=== PATIENT | male | born 1980 | race Hispanic/Latino ===

== ENCOUNTER 2019-11-21 13:24 | Inpatient (IN) | payer OTHER, SELFPAY ==
[2019-11-21] MEDS ORDERED: Morphine 4 MG/ML VIAL ONE (13:40)
[2019-11-21] MEDS ORDERED: Ondansetron PF 4 MG/2 ML Vial ONE (13:40)
[2019-11-21] MEDS ORDERED: Adacel (T-DAP) 0.5 ML SYRINGE ONE (13:40)
[2019-11-21 13:56] LABS: #Eosinphils 0.1 thou/uL (0.0-0.7); #Lymphocytes 1.6 thou/uL (1.20-3.40); #Monocytes 0.5 thou/uL (0.11-0.59); #Neutrophils 7.5 thou/uL (1.40-6.50); %Basophils 0.5 % (0.0-1.0); %Lymphocytes 16.6 % (21.0-51.0); %Neutrophils 76.9 % (42.0-75.0); Hemoglobin 16.4 g/dL (14.0-18.0); Mean Corpuscular HGB CONC 32.6 g/dL (32.0-36.0); Mean Corpuscular Volume 91.9 fL (78.0-98.0); Mean Platelet Volume 7.8 fL (7.4-10.4); Platelet Count 225 thou/uL (130-400); RBC Distribution Width 12.3 % (11.5-14.5); Red Blood Cell (RBC) Count 5.48 mill/uL (4.70-6.10); White Blood Cell (WBC) Count 9.8 thou/uL (4.8-10.8)
[2019-11-21] MEDS ORDERED: Crotalidae Polyvlnt Antivenin 6 GM in Sodium Chloride 0.9% 250 ML 250 ML IVPB SCH (14:00)
[2019-11-21 14:03] LABS: PTT 33.2 sec (22.9-36.1); Prothrombin Time 12.9 sec (12.0-14.7)
[2019-11-21 14:22] LABS: ALT (SGPT) 17 U/L (8-55); AST (SGOT) 25 U/L (5-34); Albumin 4.4 g/dL (3.5-5.0); Alkaline Phosphatase 48 U/L (40-110); Anion Gap 15 mmol/L (10-20); BUN (Urea Nitrogen) 9 mg/dL (8.9-20.6); Bilirubin, Total 0.3 mg/dL (0.2-1.2); Calc. Creatinine Clearance 0 mL/min (70-130); Calcium 9.3 mg/dL (7.8-10.44); Carbon Dioxide 22 mmol/L (22-29); Chloride 107 mmol/L (98-107); Estimated GFR-MDRD Greater than 90; Globulin 3.4 g/dL (2.4-3.5); Glucose 124 mg/dL (70-105); Protein, Total 7.8 g/dL (6.0-8.3); Sodium 140 mmol/L (136-145)
--- NOTE | 2019-11-21 14:29 | PDOC.FPRHP ---
- History of Present Illness Chief Complaint: Snake Bite (Copperhead) History of Present Illness: Bit at 1130 AM by a Copperhead. Patient killed snake and presented to hospital. He presented in [place], received pain medicine, and was transferred to [facility] 04/30 ability of CroFab. He was life flighted. On arrival here, patient was reportedly nauseous which had improved after Zofran. 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 He noticed significant swelling within 1 hr. He denied any other symptoms associated with bite. He endorses feeling and minimal ROM in hand limited by pain. ED Course: Over the course of his ER stays/transfers, he received pain control including 100 mcg fentanyl, 0.5 mg dilaudid, and 8 mg morphine. He still endorsed 6/10 pain. He was started on Crofab at [facility]. - Allergies/Adverse Reactions Allergies Allergy/AdvReac Type Severity Reaction Status Date / Time No Known Allergies Allergy Unverified 11/21/19 13:47 - History PMH: None Meds: None Allergies: NKDA Surgery: None FHx: None Social: drinks 18 pack of beer on the weekend, smokes 2-3 cigarettes/day, denies other drug use - Review of Systems General: denies: fever/chills, weight/appetite/sleep changes Eyes: denies: eye pain, vision changes ENT: denies: nasal congestion, rhinorrhea Respiratory: denies: cough, congestion, shortness of breath Cardiovascular: denies: chest pain, palpitation Gastrointestinal: reports: nausea. denies: vomiting, diarrhea Genitourinary: denies: incontinence, dysuria Skin: reports: rashes, lesions (erythema in arm, snake bite on hypothenar eminence) Musculoskeletal: reports: pain, tenderness, stiffness, swelling Neurological: denies: numbness, syncope, seizure, weakness Psychological: denies: anxiety - Vital signs T 97.8 P: 69 RR: 20 O2 sats: 95 BP 122/79 Wt: 79 kg - Physical Exam Constitutional: NAD, awake, alert and oriented, well developed HEENT: normocephalic and atraumatic, conjunctiva clear, grossly normal vision, normal nasal mucosa, MMM Neck: supple, FROM Heart: RRR, normal S1/S2, no murmurs/rubs/gallops Lungs: CTAB, no respiratory distress, good air movement Abdomen: soft, non-tender, bowel sounds present -Musculoskeletal: Significant edema of RUE extending from fingertips to just above elbow with erythema and pain Neurological: no focal deficit, normal sensation -Skin: 2 puncture woudns on R hypothenar eminence, large nevus with hair over thoracic spine Heme/Lymphatic: no unusual bruising or bleeding, no purpura Psychiatric: normal mood and affect, good judgment and insight, intact recent and remote memory FMR H&P: Results - Labs Result Diagrams: 11/21/19 13:45 11/21/19 13:45 Lab results: WBC 9.8 thou/uL (4.8-10.8) 11/21/19 13:45 Hgb 16.4 g/dL (14.0-18.0) 11/21/19 13:45 Hct 50.4 % (42.0-52.0) 11/21/19 13:45 MCV 91.9 fL (78.0-98.0) 11/21/19 13:45 Plt Count 225 thou/uL (130-400) 11/21/19 13:45 Neutrophils % 76.9 % (42.0-75.0) H 11/21/19 13:45 Sodium 140 mmol/L (136-145) 11/21/19 13:45 Potassium 4.0 mmol/L (3.5-5.1) 11/21/19 13:45 Chloride 107 mmol/L (98-107) 11/21/19 13:45 Carbon Dioxide 22 mmol/L (22-29) 11/21/19 13:45 BUN 9 mg/dL (8.9-20.6) 11/21/19 13:45 Creatinine 0.83 mg/dL (0.7-1.3) 11/21/19 13:45 Glucose 124 mg/dL (70-105) H 11/21/19 13:45 Calcium 9.3 mg/dL (7.8-10.44) 11/21/19 13:45 Total Bilirubin 0.3 mg/dL (0.2-1.2) 11/21/19 13:45 AST 25 U/L (5-34) 11/21/19 13:45 ALT 17 U/L (8-55) 11/21/19 13:45 Alkaline Phosphatase 48 U/L (40-110) 11/21/19 13:45 Serum Total Protein 7.8 g/dL (6.0-8.3) 11/21/19 13:45 Albumin 4.4 g/dL (3.5-5.0) 11/21/19 13:45 PT 12.9 INR 1.0 APTT 33.2 Fibrinogen 343 - EKG Interpretation EKG: no QT prolongation, Sinus Tach FMR H&P: A/P - Plan Copperhead Bite - Admit to tele monitor QT prolongation - Crofab per protocol loading dose in ER completed at 1530, f/u coags 1 hr post infusion, 2 vials Q 6h hrs X3 starting 6 hrs post loading dose. Repeat Coags 12- 18 hrs after last dose - monitor coagulation studies - Pain control with morphine - monitor vitals PCP: CC Code: Full Diet: Heart Healthy Activity: Ad celso VTE PPx: SCDs - Krystyna Score: 0 (Low Score) GI PPx: None Dispo: Confirmed treatment protocol with poison control. Patient stable at this time. Expected LOS < 48H FMR H&P: Upper Level - Pertinent history Patient is a 39 y/o male who presents to the ED via [facility] from [place], [place] following a snakebite. Patient states that he was working outside when he was bit on the right hand by a Copperhead, which he recognized on sight. Patient states that he killed the snake immediately following the bite but lost it en route to the hospital. Patient endorsed immediate 10/10 pain in his right hand and localized swelling and subsequently presented to the ED for evaluation. Per checkout, the ED in [place], [place] did not have CroFab, and the patient was subsequently transported via [facility] to [place], [place]. Patient denied chest pain, SOB, worsening VALENCIA, visual disturbances, or ancillary bites/injuries. - Pertinent findings ROS(+): Pain, nausea ROS(-): Fevers, chills, VALENCIA, visual disturbances, chest pain, SOB, vomiting, diarrhea, constipation, additional bites/injuries - Plan Date/Time: 11/21/19 8119 Patient is a 39 y/o male who presents to the ED via [facility] from an outside hospital following a snakebite. 1. Snakebite -s/p Copperhead bite at 1130 on 11/21/2019 -Based on bite samuel, offending snake was rather large -Patient's rapidly ascending edema is concerning - will plan for interval markings to assess for continue spread and augment CroFab regimen as needed -EKG: Sinus Tachycardia -Initial CBC, CMP and Coag Panel WNL -s/p CroFab 6u in the ED -Will plan for additional Coag Study 1H following initial CroFab administration -Will plan for CroFab 2g IV Q6H x3 following initial CroFab administration -Will plan for BMP 12-18H following final CroFab administration -Will control pain aggressively and augment as needed PCP: CC Code: Full Diet: Heart Healthy Activity: Ad celso VTE PPx: SCDs - Krystyna Score: 0 (Low Score) GI PPx: None Dispo: Patient is currently stable and admitted to the [facility] for ongoing treatment following a snakebite. Will continue treatments with CroFab followed by Coag Studies as per above and will plan for a BMP 12-18H last treatment - confirmed with Poison Control via telephone. Will monitor patient's pain and augment medication regimen as needed. Expected LOS > 48H I, Dr. Kwabena Cole, have evaluated this patient and agree with findings/plan as outlined by clinical nursing intern resident. Pertinent changes/additions are listed here.
[2019-11-21] MEDS ORDERED: Acetaminophen 325 MG TAB PO PRN ×2 (17:59→18:06)
[2019-11-21] MEDS ORDERED: Ondansetron PF 4 MG/2 ML Vial IVP PRN ×3 (17:59→20:09)
[2019-11-21] MEDS ORDERED: Ondansetron ODT 4 MG TAB SL PRN (17:59)
[2019-11-21] MEDS ORDERED: Morphine 4 MG/ML VIAL SLOW IVP PRN ×3 (18:00→20:08)
[2019-11-21] MEDS ORDERED: Calcium Carbonate 500 MG ChewTAB PO PRN (18:06)
[2019-11-21] MEDS ORDERED: Acetaminophen 650 MG Suppository PR PRN (18:06)
[2019-11-21] MEDS ORDERED: Ondansetron ODT 4 MG TAB PO PRN (18:06)
[2019-11-21 18:28] VITALS: BMI 27.3
[2019-11-21 19:15] LABS: PTT 28.1 sec (22.9-36.1); Prothrombin Time 13.4 sec (12.0-14.7)
[2019-11-21] MEDS ORDERED: diphenhydrAMINE 50 MG/ML VIAL IVP PRN (20:08)
[2019-11-21] MEDS ORDERED: Acetaminophen 500 MG TAB PO PRN (20:09)
[2019-11-21] MEDS ORDERED: HOLD ALL ANTI-COAGULANTS/ANTI-PLATELETS/NSAIDS PO SCH (20:15)
[2019-11-21] MEDS ORDERED: Famotidine/PF 20 mg/2ml Vial SLOW IVP SCH (21:00)
[2019-11-21] MEDS: Famotidine 20 MG TAB PO SCH (21:57)
[2019-11-21] MEDS: Crotalidae Polyvlnt Antivenin 2 GM in Sodium Chloride 0.9% 250 ML 250 ML IVPB SCH (21:57)
[2019-11-21] MEDS: Lactated Ringer's 1,000 ML IV SCH (23:51)
[2019-11-22] MEDS: Crotalidae Polyvlnt Antivenin 2 GM in Sodium Chloride 0.9% 250 ML 250 ML IVPB SCH ×2 (04:03→09:49)
[2019-11-22 04:21] LABS: #Eosinphils 0.3 thou/uL (0.0-0.7); #Lymphocytes 1.6 thou/uL (1.20-3.40); #Monocytes 0.5 thou/uL (0.11-0.59); #Neutrophils 4.1 thou/uL (1.40-6.50); %Basophils 0.6 % (0.0-1.0); %Eosinophils 4.5 % (0.0-10.0); %Lymphocytes 24.1 % (21.0-51.0); %Monocytes 7.1 % (0.0-10.0); %Neutrophils 63.7 % (42.0-75.0); Hemoglobin 15.6 g/dL (14.0-18.0); Mean Corpuscular HGB CONC 32.5 g/dL (32.0-36.0); Mean Corpuscular Hemoglobin 30.7 pg (27.0-31.0); Mean Corpuscular Volume 94.5 fL (78.0-98.0); Mean Platelet Volume 8.9 fL (7.4-10.4); Platelet Count 196 thou/uL (130-400); RBC Distribution Width 12.4 % (11.5-14.5); Red Blood Cell (RBC) Count 5.07 mill/uL (4.70-6.10); White Blood Cell (WBC) Count 6.5 thou/uL (4.8-10.8)
[2019-11-22 04:36] LABS: Anion Gap 12 mmol/L (10-20); BUN (Urea Nitrogen) 8 mg/dL (8.9-20.6); Calc. Creatinine Clearance 158 mL/min (70-130); Calcium 8.4 mg/dL (7.8-10.44); Carbon Dioxide 23 mmol/L (22-29); Chloride 107 mmol/L (98-107); Estimated GFR-MDRD Greater than 90; Glucose 90 mg/dL (70-105); Sodium 138 mmol/L (136-145)
--- NOTE | 2019-11-22 05:48 | PDOC.FM ---
- Subjective Subjective: Patient reports minimal pain with tightness from the swelling. Swelling has gone down since last night, now it is from fingertips to just below the elbow. He denies any other sx including SOB, chest pain, other aches/pains, or abnormal bleeding. - Objective MAR Reviewed: Yes Vital Signs & Weight: Vital Signs (12 hours) Temp Pulse Resp BP BP Pulse Ox 11/22/19 03:34 98.1 F 70 15 110/63 99 11/21/19 22:14 98.1 F 77 18 120/70 99 11/21/19 19:25 98.2 F 63 17 119/74 98 Weight Weight 79.379 kg Result Diagrams: 11/22/19 04:04 11/22/19 04:04 Phys Exam - Physical Examination Constitutional: NAD HEENT: moist MMs, sclera anicteric Neck: no nodes, no JVD Respiratory: no wheezing, no rales, no rhonchi, clear to auscultation bilateral Cardiovascular: RRR, no significant murmur Gastrointestinal: soft, non-tender, no distention, positive bowel sounds Musculoskeletal: pulses present RUE edema from fingertips to just below elbow Neurological: non-focal, moves all 4 limbs Psychiatric: normal affect, A&O x 3 Dx/Plan - Plan Plan: Copperhead Bite - tele monitor QT prolongation - Crofab per protocol, loading dose and 2/3 subsequent doses completed. Repeat Coags 1 hr after last dose, >6 hrs after last dose, and likely one more time before dc - monitor coagulation studies - Pain control with morphine - monitor vitals - BMP, CBC in AM PCP: CC Code: Full Diet: Heart Healthy Activity: Ad celso VTE PPx: SCDs - Krystyna Score: 0 (Low Score) GI PPx: None Dispo: Confirmed treatment protocol with poison control. Patient stable at this time. Expected LOS < 48H
[2019-11-22] MEDS: Lactated Ringer's 1,000 ML IV SCH ×2 (08:26→16:50)
[2019-11-22] MEDS: Famotidine 20 MG TAB PO SCH (08:28)
[2019-11-22 12:30] LABS: SARS-CoV-2 MS2 Positive; SARS-CoV-2 N Gene Negative; SARS-CoV-2 S Gene Negative; SARS-CoV-2 by NAA Not Detected (NotDetected); SARS-CoV-2 orf1ab Negative
[2019-11-22 16:19] VITALS: BP 115/70; TEMP 98.2
[2019-11-22 17:13] LABS: #Eosinphils 0.3 thou/uL (0.0-0.7); #Lymphocytes 1.3 thou/uL (1.20-3.40); #Monocytes 0.3 thou/uL (0.11-0.59); #Neutrophils 3.6 thou/uL (1.40-6.50); %Basophils 0.5 % (0.0-1.0); %Eosinophils 5.3 % (0.0-10.0); %Monocytes 5.4 % (0.0-10.0); %Neutrophils 65.8 % (42.0-75.0); Hemoglobin 14.2 g/dL (14.0-18.0); Mean Corpuscular HGB CONC 32.9 g/dL (32.0-36.0); Mean Corpuscular Hemoglobin 30.8 pg (27.0-31.0); Mean Corpuscular Volume 93.4 fL (78.0-98.0); Mean Platelet Volume 7.8 fL (7.4-10.4); Platelet Count 180 thou/uL (130-400); Red Blood Cell (RBC) Count 4.63 mill/uL (4.70-6.10); White Blood Cell (WBC) Count 5.5 thou/uL (4.8-10.8)
[2019-11-22 17:21] LABS: PTT 27.8 sec (22.9-36.1); Prothrombin Time 12.9 sec (12.0-14.7)
[2019-11-22] MEDS ORDERED: Tetrahydrozoline 0.05% OPTH 15 ML BOT EA EYE PRN (17:27)
--- NOTE | 2019-11-22 17:30 | HP ---
I have examined the patient. I have discussed the case with Dr. Bulmaro Luna and agree with his assessment and plan. 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 On the day of admission, he was doing some foundation work, reached out, and felt bites on his hand. He noted very large copperhead. He was taken to a local either ED or urgent care. They did not have CroFab, so the patient was transferred to [place] for a higher level of care. I examined him in the ER thereafter. PHYSICAL EXAMINATION: GENERAL: He is a robust, healthy-appearing man, in no distress. He does complain of some pain in his right arm near the site of the copperhead bite, which is on the hyperthenar eminence of his right hand. He has swelling progressing proximally to the mid biceps. As stated, he is awake, alert, and other than pain and swelling in his arm, he is in no acute distress. VITAL SIGNS: Temperature afebrile, respirations are 18 and not labored, pulse rate is 70 and regular, blood pressure 122/79, and O2 saturation 95% on room air. NECK: Supple. CARDIAC: Heart rhythm regular. No gallop or murmur noted. LUNGS: Clear without rales or wheezes. ABDOMEN: Flat and soft. NEUROLOGIC: No focal deficits. EXTREMITIES: With careful attention to his right arm and hand, his right arm has swollen in its entirety from the fingertips to the mid biceps. There are 2 puncture wounds, by approximately 1.5 to 2 cm on the hyperthenar eminence of his right hand, consistent with a snake bite. He has gross tense edema to the level of the mid biceps. Capillary refill is normal. He denies any muscle weakness or paresthesias or anesthesias. LABORATORY DATA: CBC: White count is 9800, hemoglobin is 16.4, and hematocrit 50.4 with an MCV of 92. Chemistry: Sodium 140, potassium 4, chloride 107, bicarb 22, BUN 9, and creatinine 0.83. Coags: His PT is 12.9, his INR is 1.0, his PTT is 33.2, and fibrinogen is 343. All of these are within normal range. ASSESSMENT: Copperhead snake bite. PLAN: Admit. He has already received the initial dose of CroFab. He will receive 3 more dosages every 6 hours. We will also continue to monitor his coagulable parameters, although at this point, he shows no evidence of a coagulopathy. He in fact shows no systemic symptoms, but does have a significant swelling of his right arm with no evidence for compartment syndrome. Job ID: [id number]
--- NOTE | 2019-11-22 17:31 | PRG ---
DATE OF SERVICE: 11/22/2019 Mr. Dave this morning is awake and alert. He states that his arm pain is greatly diminished. The swelling has subsided substantially and now extends to the level of the elbow. Again, he has no signs of a compartment syndrome and has normal capillary refill. He is due for one more dose of CroFab, after which time we can likely discharge him after checking one more coagulable panel. Job ID: [id number]
--- NOTE | 2019-11-22 23:02 | DIS ---
DATE OF ADMISSION: 11/21/2019 DATE OF DISCHARGE: 11/22/2019 ADMITTING ATTENDING: Be Urban MD DISCHARGE ATTENDING: Be Urban MD CONSULTATIONS: None. PROCEDURES: None. PRIMARY DIAGNOSIS: Copperhead snake bite. SECONDARY DIAGNOSIS: None. DISCHARGE MEDICATIONS: None. DISCONTINUED MEDICATIONS: None. HPI/HOSPITAL COURSE: The patient is a 39-year-old male who presented to our hospital due to a copperhead snake bite. The patient was transferred here from [place], where he initially presented. He was life flighted here. He received CroFab. The patient reports that on the morning of admission at around 11:30 a.m. he was working on [employer] as part of his job, reached his hand out and was bit. He was bit on the lateral portion of his right hand. He killed the snake and presented to the initial hospital. He reports that within 1 hour he had significant swelling. Within 2 hours the swelling extended up to his right elbow. He endorsed significant pain at that time with nausea upon arrival. He received Fentanyl, Dilaudid, and morphine for pain control. He received Zofran for nausea. Upon arrival, he was started on CroFab loading dose of 6 units. Poison Control was called to ensure the treatment was correct. After the initial loading dose, the patient received 2 units every 6 hours x3. The patient's coagulation studies were periodically checked and remained within normal limits. The patient also had repeat CBCs and basic metabolic panels that continued to be stable and within normal limits during his time in the hospital. On the morning of 11/21, the patient reports that his hand and arm have minimal pain. He required no pain medicine overnight. He reports the swelling has gone down and had more movement in his hand. He continued to have less swelling during the day and was eventually discharged with stable, normal labs after completing all appropriate doses of CroFab. DISPOSITION: Stable. DISCHARGE INSTRUCTIONS: 1. Location: Home. 2. Diet: No restrictions. 3. Activity: I told the patient to take rest of the week off work and to take it easy with his right hand. I told him to return to work when his hand and arm had significantly decreased swelling. 4. Followup: Explained to the patient the importance of followup with a PCP. The patient reports that he has no PCP at home. I reiterated that it is of great importance to follow up within 2 weeks in order to get his arm and hand re-evaluated. Job ID: [id number] [id number]
== END 2019-11-22 19:33 | disposition home or self-care (01) | DRG 918 ==
LOC: ERS 13:24 → OBSVTOIN 15:00 → 2SW 15:00 → 2NO 22:15
PROVIDERS: ADMIT Family Medicine; ATTEND Family Medicine
DX: T63.061A Toxic effect of venom of other North and South American snake, accidental (unintentional), initial encounter (principal); I45.81 Long QT syndrome; Z20.828 Contact with and (suspected) exposure to other viral communicable diseases; Y92.69 Other specified industrial and construction area as the place of occurrence of the external cause
CPT/HCPCS: 36415; 80048; 80053; 85025; 85384; 85610; 85730; 86850; 86900; 86901; 87635; 90471; 90715; 93005; 96361; 96365; 96374; G0378; J0840; J2270; J2405; J7050; U0003